=== PATIENT | male | born 1990 | race African-American/Black ===

== ENCOUNTER 2021-08-31 11:29 | Inpatient (IN) ==
[2021-08-31] MEDS ORDERED: Lactated Ringers 1000 ml BAG 1,000 ML IV ONE ×2 (11:35→12:19)
[2021-08-31 12:01] LABS: ABS Eosinophils 0.2 10^3/ul (0-0.6); ABS Lymphocytes 2.1 10^3/ul (1.0-4.8); ABS Monocytes 0.5 10^3/ul (0-0.8); ABS Neutrophils 3.1 10^3/ul (1.5-7.7); Eosinophil % 2.6 %; Hematocrit 38 % (42-52); Hemoglobin 12.5 g/dL (14.0-18.0); Lymphocyte % 35.6 %; Mean Corpuscular HGB Conc 33 g/dL (31-36); Mean Corpuscular Hemoglobin 29 pg (27-31); Mean Corpuscular Volume 86 fL (80-94); Mean Platelet Volume 9.5 fL (7.4-10.4); Platelet Count 195 10^3/uL (150-450); Red Blood Count 4.36 10^6 /uL (4.18-5.48); Red Cell Distribution Width 15 % (10-15); White Blood Count 5.9 10^3/uL (3.5-10.8)
[2021-08-31 12:12] LABS: ALT 16 U/L (7-52); Albumin 4.2 g/dL (3.2-5.2); Albumin/Globulin Ratio 1.5 (1-3); Alkaline Phosphatase 59 U/L (35-149); Blood Urea Nitrogen 12 mg/dL (6-24); CO2 Carbon Dioxide 28 mmol/L (22-32); Calcium 9.6 mg/dL (8.6-10.3); Chloride 104 mmol/L (101-111); Globulin 2.8 g/dL (2-4); Glucose 106 mg/dL (70-100); Sodium 138 mmol/L (135-145)
[2021-08-31] MEDS ORDERED: Lorazepam PYXIS KEY PRN ×2 (12:30→19:34)
[2021-08-31] MEDS ORDERED: LORazepam 2 mg VIAL 1 ml IV PUSH ONE (12:30)
[2021-08-31 12:37] LABS: Alcohol, S < 13 mg/dL (<13); Salicylate < 2.50 mg/dL (<30)
[2021-08-31 12:43] LABS: Acetaminophen 75 mcg/mL
[2021-08-31] MEDS ORDERED: ACETYLCYSTEINE IV ONE ×3 (13:00→19:30)
[2021-08-31] MEDS ORDERED: D5W IV ONE ×3 (13:00→19:30)
[2021-08-31 13:39] LABS: AST 17 U/L (13-39); Anion Gap 6 mmol/L (2-11); Potassium 3.7 mmol/L (3.5-5.0)
[2021-08-31 14:21] LABS: Creatine Kinase 194 U/L (10-223)
[2021-08-31 15:24] LABS: Magnesium 1.8 mg/dL (1.9-2.7)
[2021-08-31 17:13] LABS: INR 1.34 (0.86-1.15)
[2021-08-31 17:19] LABS: % Iron Saturation 17 % (15-55); Total Iron Binding Capacity 343 mcg/dL (250-450)
[2021-08-31 17:31] LABS: Ferritin 42.7 ng/mL (24-336)
[2021-08-31 17:41] LABS: Iron 60 ug/dL (50-212); Transferrin 245 mg/dL (203-362); Unsaturated Iron Binding 283 ug/dL
[2021-08-31 19:25] LABS: Urine Appearance Clear; Urine Bilirubin Negative (Negative); Urine Blood Negative (Negative); Urine Color Straw; Urine Glucose 3+(>=500 mg/dL) (Negative); Urine Ketones 2+ (Negative); Urine Nitrite Negative (Negative); Urine Protein Negative (Negative); Urine Specific Gravity 1.025 (1.002-1.030); Urine Urobilinogen Negative (Negative)
[2021-08-31] MEDS ORDERED: LORazepam 2 mg VIAL 1 ml IV PUSH PRN (19:34)
[2021-08-31 19:37] LABS: Urine Benzodiazepine Screen None Detected (None Detect); Urine Cannabinoids Screen None Detected (None Detect); Urine Opiates Screen None Detected (None Detect)
[2021-08-31] MEDS ORDERED: Magnesium Sulfate IV 1GM/100ML 1 GM/100 ML BAG IV ONE (20:22)
[2021-09-01 05:39] LABS: ABS Lymphocytes 1.9 10^3/ul (1.0-4.8); ABS Monocytes 0.7 10^3/ul (0-0.8); ABS Neutrophils 8.5 10^3/ul (1.5-7.7); Eosinophil % 0.4 %; Hematocrit 37 % (42-52); Hemoglobin 12.6 g/dL (14.0-18.0); Mean Corpuscular HGB Conc 34 g/dL (31-36); Mean Corpuscular Hemoglobin 29 pg (27-31); Mean Corpuscular Volume 84 fL (80-94); Nucleated Red Blood Cells % 0.1; Platelet Count 193 10^3/uL (150-450); Red Blood Count 4.42 10^6 /uL (4.18-5.48); Red Cell Distribution Width 15 % (10-15); White Blood Count 11.1 10^3/uL (3.5-10.8)
[2021-09-01 05:45] LABS: INR 1.53 (0.86-1.15)
[2021-09-01 06:05] LABS: Albumin 4.3 g/dL (3.2-5.2); Albumin/Globulin Ratio 1.6 (1-3); Calcium 9.8 mg/dL (8.6-10.3); Globulin 2.7 g/dL (2-4); Potassium 2.8 mmol/L (3.5-5.0); Total Bilirubin 0.7 mg/dL (0.2-1.0); eGFR CKD-EPI 125.3 (>60)
[2021-09-01] MEDS ORDERED: Potassium Chlor 20 meq TAB.ER PO ONE (06:07)
[2021-09-01] MEDS: KCL 20 MEQ/100 ML IVPREMIX 20 MEQ/100 ML BAG IV SCH ×2 (06:25→08:44)
[2021-09-01] MEDS: Pantoprazole VIAL 40 MG VIAL IV SCH (08:44)
[2021-09-01 10:42] LABS: Acetaminophen < 15 mcg/mL
[2021-09-01 11:11] LABS: INR 1.56 (0.86-1.15)
[2021-09-01 11:12] LABS: Anion Gap 9 mmol/L (2-11); Blood Urea Nitrogen 4 mg/dL (6-24); CO2 Carbon Dioxide 27 mmol/L (22-32); Calcium 9.7 mg/dL (8.6-10.3); Chloride 102 mmol/L (101-111); Glucose 147 mg/dL (70-100); Magnesium 1.8 mg/dL (1.9-2.7); Potassium 3.5 mmol/L (3.5-5.0); Sodium 138 mmol/L (135-145); eGFR CKD-EPI 122.4 (>60)
[2021-09-02 00:48] LABS: Albumin 3.9 g/dL (3.2-5.2); Albumin/Globulin Ratio 1.6 (1-3); Calcium 9.1 mg/dL (8.6-10.3); Globulin 2.4 g/dL (2-4); Potassium 3.4 mmol/L (3.5-5.0); Total Bilirubin 0.3 mg/dL (0.2-1.0); Total Protein 6.3 g/dL (6.4-8.9)
[2021-09-02 05:47] LABS: Hematocrit 38 % (42-52); Hemoglobin 12.7 g/dL (14.0-18.0); Mean Corpuscular HGB Conc 33 g/dL (31-36); Mean Corpuscular Hemoglobin 29 pg (27-31); Mean Corpuscular Volume 86 fL (80-94); Mean Platelet Volume 9.2 fL (7.4-10.4); Platelet Count 192 10^3/uL (150-450); Red Blood Count 4.43 10^6 /uL (4.18-5.48); Red Cell Distribution Width 15 % (10-15); White Blood Count 8.8 10^3/uL (3.5-10.8)
[2021-09-02 05:56] LABS: INR 1.19 (0.86-1.15)
[2021-09-02 06:04] LABS: Albumin 3.8 g/dL (3.2-5.2); Albumin/Globulin Ratio 1.5 (1-3); Calcium 9.3 mg/dL (8.6-10.3); Globulin 2.6 g/dL (2-4); Potassium 3.6 mmol/L (3.5-5.0); Total Bilirubin 0.4 mg/dL (0.2-1.0); Total Protein 6.4 g/dL (6.4-8.9); eGFR CKD-EPI 121.5 (>60)
[2021-09-02] MEDS ORDERED: Magnesium Sulfate 2 gm BAG 2 GM/50 ML BAG IVPB ONE (07:26)
[2021-09-02] MEDS: Pantoprazole VIAL 40 MG VIAL IV SCH (07:56)
[2021-09-02 07:59] LABS: Magnesium 1.7 mg/dL (1.9-2.7)
[2021-09-02 08:17] VITALS: BP 116/78
[2021-09-02] MEDS ORDERED: Saline NASAL SPRAY 0.65% BTL BOTH NARES PRN (08:36)
== END 2021-09-02 14:00 | DRG 812 ==
LOC: ED 11:29 → EDHOLD 13:40 → ICU 18:51
PROVIDERS: ADMIT Internal Medicine Critical Care Medicine; ATTEND Internal Medicine Critical Care Medicine